=== PATIENT | female | born 1995 | race Hispanic/Latino ===

== ENCOUNTER 2023-02-06 17:54 | Emergency (ER) | payer BC ==
[~2023-02-06] VITALS: Ht 160 cm; Wt 81.6 kg
[~2023-02-06 17:54] MED LIST: ACET-2079 PO; DOCU-116 PO; IBUP-2071 PO; PREN-196 PO; [UNRECOGNIZED DRUG - OTHER] PO
[2023-02-06 18:21] LABS: BASOPHILS % (AUTO) 0.6 % (0.0-5.0); EOSINOPHILS % (AUTO) 1.6 % (0.0-8.0); HEMATOCRIT 25.6 % (36-48); LYMPHOCYTES % (AUTO) 30.2 % (21.0-51.0); MEAN CORPUSCULAR HEMOGLOBIN 33.5 pg (27.0-33.0); MEAN CORPUSCULAR HGB CONC 34.8 g/dL (32.0-36.0); MEAN CORPUSCULAR VOLUME 96.2 fL (79-99); NEUTROPHILS % (AUTO) 60.3 % (40.0-77.0); NUCLEATED RED BLOOD CELLS 0.3 % (0.0-0.19); PLATELET COUNT (AUTO) 229 K/uL (130-400); RED BLOOD CELL COUNT(AUTO) 2.66 MIL/uL (4.00-5.50); RED CELL DISTRIBUTION WIDTH 13.7 % (11.0-15.5); WHITE BLOOD COUNT (AUTO) 6.8 K/uL (4.8-10.8)
[2023-02-06 18:37] LABS: CREATININE 0.7 mg/dL (0.5-1.5)
[2023-02-06 18:41] LABS: B-TYPE NATRIURETIC PEPTIDE 234 pg/mL (0-100)
[2023-02-06 18:46] LABS: ALBUMIN 2.5 g/dL (3.5-5.0); TOTAL PROTEIN, SERUM 5.8 g/dL (6.0-8.3)
[2023-02-06] MEDS ORDERED: FUROSEMIDE 40MG VIAL IV ONE (19:30)
[2023-02-06] MEDS ORDERED: IOHEXOL-350 75 ML VIAL IV ONE (19:47)
[2023-02-06 20:10] LABS: APPEARANCE,URINE CLEAR (CLEAR); BILIRUBIN,URINE NEGATIVE (NEGATIVE); COLOR,URINE LIGHT-BROWN (YELLOW); GLUCOSE, URINE (UA) NEGATIVE (NEGATIVE); KETONES,URINE 5 mg/dL (NEGATIVE); LEUKOCYTE ESTERASE ,URINE 25 Leu/uL (NEGATIVE); NITRATE,URINE NEGATIVE (NEGATIVE); OCCULT BLOOD,URINE LARGE (NEGATIVE); PROTEIN,URINE 20 mg/dL (NEGATIVE); UROBILINOGEN,URINE 0.2 mg/dL (0.2-1.0)
[2023-02-06 20:16] LABS: BACTERIA,URINE FEW /HPF (None Seen); MUCUS,URINE RARE LPF (None Seen); RBC,URINE TNTC /HPF (0-1); SQUAMOUS EPITHELIAL CELL,UR RARE /HPF (0-2)
[2023-02-06] MEDS ORDERED: SOLU-MEDROL 125MG VIAL IVP ONE (21:00)
[2023-02-06] MEDS ORDERED: DiphenhydrAMINE HCL 50 MG/ML VIAL IV ONE (21:00)
[2023-02-06] MEDS ORDERED: FURO40TA7 PO (21:30)
[2023-02-06] MEDS ORDERED: POTA10TA PO (21:30)
[2023-02-06 21:32] VITALS: BP 126/76
== END 2023-02-06 21:58 | disposition home or self-care (01) ==
LOC: EDH 17:54
DX: E87.70 Fluid overload, unspecified (principal); Z79.52 Long term (current) use of systemic steroids
CPT/HCPCS: 99285; 93970; 96374; 71270; 96375; 84484; 80053; 83880; 85025; 85378; 87088; 81001; 36415; 93005; J1200; J1940; Q9967